=== PATIENT | female | born 1950 | race Caucasian/White ===

== ENCOUNTER 2022-08-31 15:38 | Outpatient (CLI) | payer OTHER, MEDICARE, SELFPAY | END 2022-08-31 15:39 | disposition home or self-care (01) | LOC: AMB 09-04 17:47 | PROVIDERS: Visit Provider Family Medicine | DX: S49.91XA Unspecified injury of right shoulder and upper arm, initial encounter (principal); V43.53XA Car driver injured in collision with pick-up truck in traffic accident, initial encounter; Y92.411 Interstate highway as the place of occurrence of the external cause | CPT/HCPCS: A0998 ==